=== PATIENT | male | born 1960 | race Caucasian/White ===

== ENCOUNTER 2017-11-30 03:48 | Emergency (ER) | payer OTHER ==
[2017-11-30 05:53] LABS: ALT/SGPT 19 IU/L (10-60); AST/SGOT 19 IU/L (10-42); Absolute Lymphocytes (CBC) 2.1 K/uL (0.7-4.9); Absolute Monocytes 0.9 K/uL (0.1-1.3); Absolute Neutrophil 9.7 K/uL (1.8-8.0); Albumin 4.3 g/dL (3.2-5.5); Alkaline Phosphatase 46 IU/L (42-121); BUN Blood Urea Nitrogen 18 mg/dL (6-20); Basophils % 0.9 % (0-1.3); Bicarbonate 30 mEq/L (21-31); Bilirubin Total 1.1 mg/dL (0.3-1.2); Eosinophils % 1.6 % (0-4.4); Glucose Level 159 mg/dL (65-120); Hematocrit 50.2 % (39.6-49.0); MCH 27.8 pg (27.0-35.0); MCV 82.8 fL (80-100); Magnesium 1.7 mg/dL (1.8-2.5); Monocytes % 7.2 % (3.3-12.3); Potassium 3.4 mEq/L (3.6-5.0); Protein, Total 7.5 g/dL (6.0-8.3); RBC Red Blood Cell Count 6.06 M/uL (4.33-5.43); Sodium Level 139 mEq/L (135-145)
[2017-11-30] MEDS ORDERED: POTASSIUM CL SA 10 MEQ TAB PO ONE (07:50)
--- NOTE | 2017-11-30 08:33 | RAD REPORT ---
EXAM DESCRIPTION: RAD - Chest Single View - 11/30/2017 6:04 am CLINICAL HISTORY: Chest pain. COMPARISON: 03/29/2009 FINDINGS: Portable technique limits examination quality. The lungs are grossly clear. The heart is normal in size. No displaced fractures. IMPRESSION: No acute intrathoracic process suspected.
--- NOTE | 2017-11-30 10:02 | EDPHYS ---
Physician Documentation [facility] Name: Raffaele Mejía Age: 57 yrs Sex: Male : 1960 Arrival Date: 11/30/2017 Time: 03:52 Bed 13 Private MD: ED Physician Charly Armstrong HPI: 11/30 03:59 This 57 yrs old Male presents to ER via Unassigned with complaints of Chest ps1 Pain, High Blood Pressure. 05:59 The patient or guardian reports chest pain that is located primarily in the substernal ps1 area, epigastric area. Onset: last night. The pain radiates to Associated signs and symptoms: The patient has no apparent associated signs or symptoms. The chest pain is described as causing indigestion. Duration: The patient or guardian reports a single episode. Severity of pain: At its worst the pain was moderate in the emergency department the pain has improved. The patient has experienced a previous episode. The patient has experienced similar episodes in the past. The patient has been recently seen by a physician:. hx of HTN. Recent BP medications. Cards in [place]. Previous Dr. Richards. Nuc stress within 6 months. . Historical: - Allergies: 04:21 No Known Allergies; bs1 - Home Meds: 04:21 Aspirin Oral [Active]; Metformin Oral [Active]; Coreg Oral [Active]; Invokana oral oral bs1 [Active]; vit D [Active]; azilsartan medoxomil oral oral [Active]; - PMHx: 04:21 Hypertension; Diabetes - NIDDM; bs1 - PSHx: 04:21 back sx; neck sx; bs1 - Immunization history:: Adult Immunizations up to date. - Social history:: Smoking status: Patient/guardian denies using tobacco. ROS: 05:59 Constitutional: Negative for fever, chills, and weight loss, Eyes: Negative for injury, ps1 pain, redness, and discharge, Neck: Negative for injury, pain, and swelling. 05:59 Respiratory: Negative for shortness of breath, cough, wheezing, and pleuritic chest pain, Abdomen/GI: Negative for abdominal pain, nausea, vomiting, diarrhea, and constipation, Back: Negative for injury and pain, MS/Extremity: Negative for injury and deformity, Skin: Negative for injury, rash, and discoloration, Neuro: Negative for headache, weakness, numbness, tingling, and seizure. 05:59 Cardiovascular: Positive for chest pain. Exam: 05:59 Constitutional: This is a well developed, well nourished patient who is awake, alert, ps1 and in no acute distress. Head/Face: Normocephalic, atraumatic. Eyes: Pupils equal round and reactive to light, extra-ocular motions intact. Lids and lashes normal. Conjunctiva and sclera are non-icteric and not injected. Chest/axilla: Normal chest wall appearance and motion. Nontender with no deformity. No lesions are appreciated. Cardiovascular: Regular rate and rhythm. No gallops, murmurs, or rubs. Normal PMI, no JVD. No pulse deficits. Respiratory: Lungs have equal breath sounds bilaterally, clear to auscultation and percussion. No rales, rhonchi or wheezes noted. No increased work of breathing, no retractions or nasal flaring. Abdomen/GI: Soft, non-tender, with normal bowel sounds. No distension or tympany. No guarding or rebound. No evidence of tenderness throughout. Skin: Warm, dry with normal turgor. Normal color with no rashes, no lesions, and no evidence of cellulitis. MS/ Extremity: Pulses equal, no cyanosis. Neurovascular intact. Full, normal range of motion. Neuro: Awake and alert, GCS 15, oriented to person, place, time, and situation. Cranial nerves II-XII grossly intact. Sensory grossly intact. Vital Signs: 04:00 BP 178 / 100; Pulse 79; Resp 18; Temp 98.3(O); Pulse Ox 97% on R/A; Weight 117.93 kg; bs1 Height 5 ft. 11 in. (180.34 cm); Pain 8/10; 05:00 BP 163 / 90; Pulse 78; Resp 19; Pulse Ox 98% on R/A; Pain 6/10; bs1 05:22 BP 157 / 86; Pulse 69; Pulse Ox 99% on R/A; bs1 06:00 BP 143 / 85; Pulse 70; Pulse Ox 96% on R/A; bs1 06:15 BP 165 / 92; Pulse 75; Pulse Ox 97% on R/A; bs1 07:00 BP 159 / 89; Pulse 76; Resp 18; Pulse Ox 100% on R/A; hj 08:00 BP 160 / 85; Pulse 76; Resp 18; Pulse Ox 100% on R/A; hj 09:00 BP 165 / 84; Pulse 78; Resp 18; Pulse Ox 100% on R/A; hj 09:55 BP 153 / 91; Pulse 78; Resp 18; Pulse Ox 100% on R/A; hj 04:00 Body Mass Index 36.26 (117.93 kg, 180.34 cm) bs1 MDM: 04:31 Patient medically screened. ps1 09:45 Differential diagnosis: acute myocardial infarction, acute pericarditis, anxiety, wa coronary artery disease congestive heart failure gastroesophageal reflux disease (GERD), stable angina, unstable angina. HEART Score: History: Moderately Suspicious (1), ECG: Non specific repolarization disturbance / LBTB / PM (1), Age: > 45 and < 65 years (1), Risk Factors: > or = 3 Risk factors for atherosclerotic disease (2), [Hypertension] [DM] [Obesity] Troponin: < or = 1 x Normal Limit (0). 09:58 Data reviewed: vital signs, nurses notes. ED course: spoke with pt's machine maintenance supervisor Dr. dae Gutierres. advises pt had a recent coronary angio with minimal plaque. he advised to d/c pt. with close f/u with his office. will d/c as per Dr. Gutierres. 11/30 05:55 Order name: CBC with Automated Diff; Complete Time: 05:57 EDMS 11/30 05:55 Order name: BNP B-Type Natriuretic Peptide; Complete Time: 05:57 EDMS 11/30 05:55 Order name: Comprehensive Metabolic Panel; Complete Time: 05:57 EDMS 11/30 05:55 Order name: Magnesium; Complete Time: 05:57 EDMS 11/30 05:55 Order name: Troponin (Emerg Dept Use Only); Complete Time: 05:57 EDMS 11/30 03:59 Order name: Cardiac monitoring; Complete Time: 05:05 ps1 11/30 03:59 Order name: EKG - Nurse/Tech; Complete Time: 04:42 ps1 11/30 03:59 Order name: IV Saline Lock; Complete Time: 04:42 ps1 11/30 03:59 Order name: Labs collected and sent; Complete Time: 04:42 ps1 11/30 08:32 Order name: Troponin (Emerg Dept Use Only); Complete Time: 09:44 EDMS 11/30 08:33 Order name: RAD; Complete Time: 09:44 EDMS 11/30 08:55 Order name: EKG Electrocardiogram EDNJ 11/30 03:59 Order name: O2 Per Protocol; Complete Time: 04:43 ps1 11/30 03:59 Order name: O2 Sat Monitoring; Complete Time: 04:43 ps1 11/30 03:59 Order name: Urine Dipstick-Ancillary (obtain specimen); Complete Time: 04:43 ps1 EC:24 Rate is 77 beats/min. Rhythm is regular. QRS [place] is Normal. [place] interval is normal. QRS ps1 interval is prolonged at 118 msec. QT interval is normal. No Q waves. T waves are Normal. No ST changes noted. Clinical impression: LAFB. NSR. Administered Medications: 07:39 Drug: Potassium Chloride 40 mEq Route: PO; 10:12 Follow up: Response: No adverse reaction Disposition: 11/30/17 10:01 Discharged to Home. Impression: Acute Chest pain, Elevated blood pressure. - Condition is Stable. - Prescriptions for Bentyl 20 mg Oral Tablet - take 1 tablet by ORAL route every 6 hours As needed; 20 tablet. Prilosec 20 mg Oral Capsule, Delayed Release(E.C.) - take 1 capsule by ORAL route once daily; 30 capsule. - Work release form, Medication Reconciliation Form, Thank You Letter, Antibiotic Education, Prescription Opioid Use form. - Follow up: Private Physician; When: 2 - 3 days; Reason: Recheck today's complaints. - Problem is new. - Symptoms have improved. - Notes: please return to ER immediatley for shortness of breath, dizziness, or worseninf chest discomfort. see your machine maintenance supervisor within 3-5 days for reevaluation otherwise Signatures: Dispatcher [employer] Alon Mckenna em1 Tong English RN RN Charly Armstrong MD MD wa Singer, Phillip, MD MD ps1 Salazar, Brittany, RN RN bs1 Corrections: (The following items were deleted from the chart) 04:21 04:21 Social history: Smoking status: Patient uses tobacco products, denies chronic bs1 smoking, but will smoke occasionally, bs1 04:46 04:21 Home Meds: amlodipine oral; bs1 bs1 10: 03:59 BNP+C.LAB.BRZ ordered. ps1 hj 10: 03:59 CBC+H.LAB.BRZ ordered. ps1 hj 10: 03:59 MAGNESIUM+C.LAB.BRZ ordered. ps1 hj 10: 03:59 TROPONIN (EMERG DEPT USE ONLY)+C.LAB.BRZ ordered. ps1 hj 10: 03:59 Chest Single View+RAD.RAD.BRZ ordered. ps1 hj 10: 03:59 EKG.EKG+EKG.RAD.EKG ordered. ps1 hj 10: 03:59 COMPREHENSIVE METABOLIC PANEL+C.LAB.BRZ ordered. ps1 hj 10: 05:09 URINE DIPSTICK--ANCILLARY+U.LAB.BRZ ordered. em1 hj
--- NOTE | 2017-11-30 10:02 | ER ---
Nurse's Notes [facility] Name: Raffaele Mejía Age: 57 yrs Sex: Male : 1960 Arrival Date: 11/30/2017 Time: 03:52 Bed 13 Private MD: Diagnosis: Acute Chest pain;Elevated blood pressure Presentation: 11/30 04:00 Presenting complaint: Patient states: "I've been having pain in my chest since bs1 yesterday, It woke me up around 3 am with a sharp pain in my chest, all over, I feel bloated, I started having pain that started from the middle of my stomach, to my chest and left shoulder.". Transition of care: patient was not received from another setting of care. Onset of symptoms was November 30, 2017 at 03:00. Initial Sepsis Screen: Does the patient meet any 2 criteria? No. Patient's initial sepsis screen is negative. Does the patient have a suspected source of infection? No. Patient's initial sepsis screen is negative. 04:20 Care prior to arrival: None. bs1 04:20 Method Of Arrival: Ambulatory bs1 04:20 Acuity: KASHMIR 3 bs1 Historical: - Allergies: 04:21 No Known Allergies; bs1 - Home Meds: 04:21 Aspirin Oral [Active]; Metformin Oral [Active]; Coreg Oral [Active]; Invokana oral oral bs1 [Active]; vit D [Active]; azilsartan medoxomil oral oral [Active]; - PMHx: 04:21 Hypertension; Diabetes - NIDDM; bs1 - PSHx: 04:21 back sx; neck sx; bs1 - Immunization history:: Adult Immunizations up to date. - Social history:: Smoking status: Patient/guardian denies using tobacco. Screenin:31 Abuse screen: Denies threats or abuse. Denies injuries from another. Nutritional bs1 screening: No deficits noted. Tuberculosis screening: No symptoms or risk factors identified. 04:41 Fall Risk None identified. bs1 Assessment: 04:00 General: Appears uncomfortable, Behavior is cooperative, anxious. Pain: Complains of bs1 pain in chest, middle of abdomen, left shoulder Pain radiates to left shoulder Pain currently is 8 out of 10 on a pain scale. Quality of pain is described as sharp, shooting, Pain began Yesterday afternoon, went away and woke patient up at 3am. Neuro: Level of Consciousness is awake, alert, obeys commands, Oriented to person, place, time, situation, Appropriate for age Chief Technologist are equal bilaterally Moves all extremities. Gait is steady, Speech is normal, Facial symmetry appears normal, Pupils are PERRLA, Intact. Cardiovascular: Reports chest pain, Denies shortness of breath, Heart tones S1 S2 present Capillary refill < 3 seconds Patient's skin is warm and dry. Respiratory: Airway is patent Trachea midline Respiratory effort is even, unlabored, Respiratory pattern is regular, symmetrical, Breath sounds are clear bilaterally. GI: Abdomen is round distended, Bowel sounds present X 4 quads. Abdomen is tender to palpation in epigastric area Reports bloating, epigastric pain. : No deficits noted. No signs and/or symptoms were reported regarding the genitourinary system. EENT: No deficits noted. No signs and/or symptoms were reported regarding the EENT system. Derm: Skin is intact, Skin is pink, warm \\T\\ dry. Musculoskeletal: Circulation, motion, and sensation intact. Capillary refill < 3 seconds, Range of motion: intact in all extremities. 04:40 Reassessment: Patient took own blood pressure medication per verbal order from Dr chris Cano. Will continue to monitor blood pressure. 05:30 Reassessment: Patient appears in no apparent distress at this time. Patient and/or bs1 family updated on plan of care and expected duration. Pain level reassessed. Patient is alert, oriented x 3, equal unlabored respirations, skin warm/dry/pink. 06:18 Reassessment: Patient appears in no apparent distress at this time. Patient and/or bs1 family updated on plan of care and expected duration. Pain level reassessed. Patient is alert, oriented x 3, equal unlabored respirations, skin warm/dry/pink. Patient states symptoms have improved. 07:00 General: Appears in no apparent distress. comfortable, obese, Behavior is calm, hj cooperative, appropriate for age. Pain: Denies pain. Pain: Denies pain. Neuro: Level of Consciousness is awake, alert, obeys commands, Oriented to person, place, time, situation, Appropriate for age Chief Technologist are equal bilaterally Moves all extremities. Gait is steady, Speech is normal, Facial symmetry appears normal, Pupils are PERRLA, Intact. Cardiovascular: Denies chest pain, Heart tones S1 S2 present Capillary refill < 3 seconds Patient's skin is warm and dry. Respiratory: Airway is patent Trachea midline Respiratory effort is even, unlabored, Respiratory pattern is regular, symmetrical, Breath sounds are clear bilaterally. GI: No signs and/or symptoms were reported involving the gastrointestinal system. : No signs and/or symptoms were reported regarding the genitourinary system. EENT: No signs and/or symptoms were reported regarding the EENT system. Derm: Skin is intact, Skin is pink, warm \\T\\ dry. Musculoskeletal: Circulation, motion, and sensation intact. Capillary refill < 3 seconds, Range of motion: intact in all extremities. 07:07 Reassessment: Report given to TONA Fortune. bs1 08:00 Reassessment: repeat trop drawn; awaiting results;. Vital Signs: 04:00 BP 178 / 100; Pulse 79; Resp 18; Temp 98.3(O); Pulse Ox 97% on R/A; Weight 117.93 kg; bs1 Height 5 ft. 11 in. (180.34 cm); Pain 8/10; 05:00 BP 163 / 90; Pulse 78; Resp 19; Pulse Ox 98% on R/A; Pain 6/10; bs1 05:22 BP 157 / 86; Pulse 69; Pulse Ox 99% on R/A; bs1 06:00 BP 143 / 85; Pulse 70; Pulse Ox 96% on R/A; bs1 06:15 BP 165 / 92; Pulse 75; Pulse Ox 97% on R/A; bs1 07:00 BP 159 / 89; Pulse 76; Resp 18; Pulse Ox 100% on R/A; hj 08:00 BP 160 / 85; Pulse 76; Resp 18; Pulse Ox 100% on R/A; hj 09:00 BP 165 / 84; Pulse 78; Resp 18; Pulse Ox 100% on R/A; hj 09:55 BP 153 / 91; Pulse 78; Resp 18; Pulse Ox 100% on R/A; hj 04:00 Body Mass Index 36.26 (117.93 kg, 180.34 cm) bs1 ED Course: 03:52 Patient arrived in ED. ds1 03:56 Alli Cano MD is Attending Physician. ps1 04:08 No provider procedures requiring assistance completed. Inserted saline lock: 20 gauge bs1 in right antecubital area, using aseptic technique. Patient maintains SpO2 saturation greater than 95% on room air. 04:17 Dalila Kimball, RN is Primary Nurse. bs1 04:26 X-ray completed. Portable x-ray completed in exam room. Patient tolerated procedure kw well. 04:30 Triage completed. bs1 04:41 Arm band placed on placed. EKG completed in triage. Results shown to MD. bs1 04:41 Patient has correct armband on for positive identification. Bed in low position. Call bs1 light in reach. Side rails up X 1. Adult w/ patient. Pulse ox on. NIBP on. 07:24 Attending Physician role handed off by Alli Cano MD ne 07:24 Charly Armstrong MD is Attending Physician. wa 10:13 IV discontinued, intact, bleeding controlled, No redness/swelling at site. Pressure hj dressing applied. Administered Medications: 07:39 Drug: Potassium Chloride 40 mEq Route: PO; hj 10:12 Follow up: Response: No adverse reaction hj Outcome: 10:01 Discharge ordered by . wa 10:12 Discharged to home ambulatory, with family. hj 10:12 Condition: stable 10:12 Discharge instructions given to patient, family, Instructed on discharge instructions, follow up and referral plans. medication usage, Demonstrated understanding of instructions, follow-up care, medications, Prescriptions given X 2. 10:13 Patient left the ED. Signatures: Ela Rushing ds1 Mary Lee Henry, RN RN Charly Armstrong MD MD wa Singer, Phillip, MD MD ps1 Salazar, Brittany, RN RN bs1 Corrections: (The following items were deleted from the chart) 04:21 04:21 Social history: Smoking status: Patient uses tobacco products, denies chronic bs1 smoking, but will smoke occasionally, bs 04:36 04:20 Presenting complaint: Patient states: "I've been having pain in my chest since bs1 yesterday, It woke me up around 3 am with a sharp pain in my chest, all over, I feel bloated, I started having pain that started from the middle of my stomach, to my chest and left shoulder." bs1 04:36 04:20 Transition of care: patient was not received from another setting of care. bs1 bs1 04:36 04:20 Onset of symptoms was November 30, 2017 at 03:00 bs1 1 04:36 04:20 Initial Sepsis Screen: Does the patient meet any 2 criteria? No. Patient's bs1 initial sepsis screen is negative. Does the patient have a suspected source of infection? No. Patient's initial sepsis screen is negative. bs1 04:46 04:21 Home Meds: amlodipine oral; 1 bs1
--- NOTE | 2017-11-30 10:20 | EKG ---
Test Date: 2017-11-30 Test Time: 04:03:22 Corn Sheller Operator: PIPER MEASUREMENT RESULTS: Intervals: Rate: 77 UT: 192 QRSD: 118 QT: 408 QTc: 461 [place]: P: 34 UT: 192 QRS: -65 T: 31 INTERPRETIVE STATEMENTS: Normal sinus rhythm Left anterior fascicular block Abnormal ECG Compared to ECG 03/29/2009 18:09:07 No significant changes Electronically Signed On 11-30-17 10:19:01 CDT by Bonilla Prasad
== END 2017-11-30 10:13 | disposition home or self-care (01) ==
LOC: ER 03:48
DX: R07.9 Chest pain, unspecified (principal); I10 Essential (primary) hypertension; E11.9 Type 2 diabetes mellitus without complications
CPT/HCPCS: 36415; 71045; 80053; 83735; 83880; 84484; 85025; 93005; 99284